=== PATIENT | male | born 1995 | race Caucasian/White ===

== ENCOUNTER 2020-01-27 21:54 | Emergency (ER) | payer OTHER ==
[~2020-01-27] VITALS: Ht 185.4 cm; Wt 127.0 kg
[2020-01-27 21:57] VITALS: BP 172/77
[2020-01-27] MEDS ORDERED: MOTRIN400 MG/TAB PO (23:56)
== END 2020-01-28 00:15 | disposition home or self-care (01) | DRG 605 ==
LOC: ED 21:54
DX: S00.83XA Contusion of other part of head, initial encounter (principal); M54.5 Low back pain; Y04.2XXA Assault by strike against or bumped into by another person, initial encounter; Y92.149 Unspecified place in prison as the place of occurrence of the external cause; Y99.0 Civilian activity done for income or pay

== ENCOUNTER 2022-08-07 14:52 | Emergency (ER) | payer OTHER ==
[2022-08-07] VITALS (9 sets, daily range): BP systolic 112–139; BP diastolic 68–91
[~2022-08-07] VITALS: Ht 185.4 cm; Wt 148.8 kg
[~2022-08-07 14:52] MED LIST: MOTRIN400 MG/TAB PO
[2022-08-07 15:47] LABS: BASO% 0.2 % (0-3); EOS% 0.1 % (0-8); HEMOGLOBIN 16.3 g/dl (14.0-18.0); IMMATURE GRANULOCYTES 0.3 % (0.0-5.0); LYMPH% 8.3 % (15-41); MEAN CELL VOLUME 79.5 fL CALC (80.0-100.0); MEAN CORPUSCULAR HGB 26.5 pG CALC (26.0-32.0); MEAN CORPUSCULAR HGB CONC 33.3 g/dL CAL (32.0-36.0); NEUT# 20.55 thou/uL (1.82-7.42); NEUT% 86.1 % (42-76); RED BLOOD COUNT 6.16 mill/uL (4.70-6.10); RED CELL DISTRI WIDTH 12.8 % (11.5-15.5)
[2022-08-07 15:59] LABS: ALBUMIN 4.9 g/dL (3.2-5.0); ALKALINE PHOSPHATASE 90 u/l (38-126); ANION GAP 17 (6-22 (CALC)); BILIRUBIN, TOTAL 0.6 mg/dL (0.2-1.3); BUN 16 mg/dL (9-20); BUN/CREATININE RATIO 17 (12-20 (CALC)); CARBON DIOXIDE 24 mmol/l (22-30); CHLORIDE 104 mmol/l (95-108); GFR FOR AFR.AMER. > 60 ML/MIN (>=60 (CALC)); GFR OTHER RACES > 60 ML/MIN (>=60 (CALC)); POTASSIUM 4.1 mmol/l (3.5-5.1); SGOT/AST 37 u/l (17-59); SODIUM 140 mmol/l (137-146); TOTAL PROTEIN 8.1 g/dL (6.3-8.2)
[2022-08-07 16:32] LABS: CPK 236 u/l (55-170); LIPASE 72 u/l (23-300)
[2022-08-07 18:30] LABS: URINE BILIRUBIN - DIPSTICK NEGATIVE (NEGATIVE); URINE BLOOD DIPSTICK MODERATE (NEGATIVE); URINE COLOR YELLOW; URINE GLUCOSE - DIPSTICK NEGATIVE (NEGATIVE); URINE KETONE 15 mg/dL (NEGATIVE); URINE LEUK ESTERASE NEGATIVE (NEGATIVE); URINE PH 5.5 (4.5-8.0); URINE PROTEIN - DIPSTICK TRACE mg/dL (NEG-TRACE); URINE SPECIFIC GRAVITY >=1.030; URINE UROBILINOGEN - DIPSTICK 0.2 E.U./dL (0.2)
[2022-08-07 18:31] LABS: URINE NITRITE - DIPSTICK NEGATIVE (Negative)
[2022-08-07 18:35] LABS: URINE HYALINE CAST FEW lpf (NONE-RARE); URINE RBC 0-2 RBC/hpf (0-5)
[2022-08-07] MEDS ORDERED: METHOCARBAMOL500 MG PO (19:14)
[2022-08-07] MEDS ORDERED: NAPROXEN500 MG PO (19:14)
== END 2022-08-07 20:01 | disposition home or self-care (01) | DRG 312 ==
LOC: ED 14:52
PROVIDERS: Family Medicine; Nurse Practitioner
DX: R55 Syncope and collapse (principal); D72.829 Elevated white blood cell count, unspecified; S39.012A Strain of muscle, fascia and tendon of lower back, initial encounter; Y35.811A Legal intervention involving manhandling, law enforcement official injured, initial encounter; Y92.149 Unspecified place in prison as the place of occurrence of the external cause; Z20.822 Contact with and (suspected) exposure to COVID-19